=== PATIENT | female | born 1990 | race Two or more races ===

== ENCOUNTER 2022-09-03 20:02 | Emergency (ER) | payer MEDICAID, OTHER ==
[~2022-09-03] VITALS: Ht 157.5 cm; Wt 47.6 kg
--- NOTE | 2022-09-03 20:18 | NUR ---
DR. NINA CHANDLER AT PT'S BEDSIDE FOR EVAL
--- NOTE | 2022-09-03 20:31 | NUR ---
EMT AT PT'S BEDSIDE FOR EKG
--- NOTE | 2022-09-03 20:34 | NUR ---
PHLEBTOMIST AT PT'S BEDSIDE
[2022-09-03 20:49] LABS: BASOPHILS # (AUTO) 0.1 K/uL (0.0-0.2); BASOPHILS % (AUTO) 0.7 % (0.0-2.0); EOSINOPHILS % (AUTO) 0.9 % (0.0-6.0); HEMATOCRIT 35 % (33-45); HEMOGLOBIN 10.9 g/dL (11.5-14.8); LYMPHOCYTES # (AUTO) 2.6 K/uL (0.8-4.8); LYMPHOCYTES % (AUTO) 29.1 % (20.0-44.0); MEAN CORPUSCULAR HGB CONC 32 g/dl (31.0-36.0); MEAN CORPUSCULAR VOLUME 73 fL (82-100); MONOCYTES # (AUTO) 0.5 K/uL (0.1-1.30); MONOCYTES % (AUTO) 5.5 % (2.0-12.0); NEUTROPHILS # (AUTO) 5.6 K/uL (1.8-8.9); NEUTROPHILS % (AUTO) 63.8 % (43.0-81.0); PLATELET COUNT (AUTO) 311 K/uL (150-450); RED BLOOD CELL COUNT(AUTO) 4.73 MIL/uL (4.0-5.2); WHITE BLOOD COUNT (AUTO) 8.8 K/uL (4.3-11.0)
--- NOTE | 2022-09-03 20:51 | NUR ---
ELECT[employer]OR REBUILDER AT PT'S BEDSIDE
--- NOTE | 2022-09-03 20:56 | NUR ---
URINE COLLECTED AND SENT TO LAB
[2022-09-03 21:06] LABS: ALANINE AMINOTRANSFERASE 15 U/L (12-78); ALKALINE PHOSPHATASE 72 U/L (46-116); ASPARTATE AMINOTRANSFERASE 19 U/L (15-37); BILIRUBIN,DIRECT 0.1 mg/dL (0.0-0.2); BILIRUBIN,TOTAL 0.3 mg/dL (0.2-1.0); CALCIUM, SERUM 8.9 mg/dL (8.5-10.1); CARBON DIOXIDE 28 mmol/L (21-32); CHLORIDE 103 mmol/L (98-107); CREATININE 0.9 mg/dL (0.6-1.3); GLUCOSE 150 mg/dL (74-106); POTASSIUM 3.6 mmol/L (3.5-5.1); SODIUM SERUM 138 mmol/L (136-145); TOTAL PROTEIN, SERUM 7.8 g/dL (6.4-8.2); UREA NITROGEN, BLOOD 12 mg/dL (7-18)
[2022-09-03 22:03] VITALS: BP 126/84
[2022-09-03 22:19] LABS: EOSINOPHILS % (MANUAL) 1 % (0-4); LYMPHOCYTES % (MANUAL) 36 % (16-48); MONOCYTES % (MANUAL) 5 % (0-11.0); NEUTROPHILS % (MANUAL) 58 (42-76)
== END 2022-09-03 22:03 | disposition home or self-care (01) ==
LOC: ER 20:03
DX: R55 Syncope and collapse (principal); R11.0 Nausea; R00.0 Tachycardia, unspecified
CPT/HCPCS: 36415; 71045-TC; 80048-TC; 80076-TC; 84484-TC; 84703-TC; 85025-TC